=== PATIENT | male | born 1970 | race Caucasian/White ===

== ENCOUNTER 2025-09-07 21:14 | Observation (INO) ==
[2025-09-07 22:10] LABS: Anion Gap 13.0 (3-11); Blood Urea Nitrogen 16.0 mg/dl (6-23); Calcium 7.5 mg/dl (8.6-10.3); Carbon Dioxide 27.0 mmol/L (21-32); Chloride 93.0 mmol/L (98-107); Creatinine Clr Calc Pharmacy 91.0 ml/min; Glucose 115.0 mg/dl (70-99(Fasting)); Magnesium 1.2 mg/dl (1.7-2.4); Potassium 2.9 mmol/L (3.5-5.1); Sodium 133.0 mmol/L (136-145)
--- NOTE | 2025-09-07 22:39 | Emergency Department Note ---
Impression & Plan Alcoholic intoxication, Hypomagnesemia, Acute hypokalemia, Acute hyponatremia, Falls ED Provider Note NAME: CAROL KUMAR AGE: 54 SEX: M : 1970 ARRIVES VIA: Ambulance INFORMANT: Patient, EMS ED PROVIDER(S): Naun Siegel DO CHIEF COMPLAINT: intoxication HPI: This is a 54-year-old male with the PMHx of alcohol use disorder presenting to [facility] for further evaluation of alcohol intoxication. Patient is accompanied by EMS who provide additional history. EMS reports the patient arrived to [facility] of his rehabilitation facility today and found to be intoxicated leading to transfer to the hospital. The patient reports drinking 2 pints of [place] today. He states that he relapsed on alcohol approximately 4 weeks ago. He states that he has fallen approximately 4-5 times today and struck his head. He currently has no pain. Patient states that he has been drinking because he was worried that he was going into delirium tremens. Patient states that he has required detoxification multiple times in the past as well as hospitalizations. He reports history of complicated withdrawal. Patient denies any anticoagulation. They deny fever or chills. No cough or congestion. Denies chest pain or palpitations. No shortness of breath. They deny abdominal pain, nausea and vomiting. No urinary complaints. No recent changes in bowel movements. Patient denies recent changes in medications or OTC supplements. Patient offers no other complaints, today. ADDITIONAL HISTORY OBTAINED: Per HPI Chronic Medical/Social Conditions Affecting Care: Per HPI PAST MEDICAL HISTORY: See Below PAST SURGICAL HISTORY: See Below FAMILY HISTORY: See Below SOCIAL HISTORY: See Below HOME MEDICATIONS: See Below ALLERGIES: See Below VITALS: See Below PHYSICAL EXAMINATION: GENERAL: Sitting up in bed, alert, well appearing, well nourished, no distress, non-toxic HEAD: atraumatic. No contusion, abrasion or lacerations. No Baumann sign present. No raccoon's eyes. EYE EXAM: normal conjunctiva. PERRL and EOM's grossly intact. OROPHARYNX: no exudate, no erythema, lips, buccal mucosa, and tongue normal and mucous membranes are moist NECK: supple, no nuchal rigidity, no adenopathy, non-tender LUNGS: Clear to auscultation. Normal chest wall mechanics HEART: no murmurs, regular rate, regular rhythm ABDOMEN: abdomen soft, non-tender, no masses, no rebound or guarding. BACK: Back is symmetrical on inspection and there is no deformity, no midline tenderness, no CVA tenderness. SKIN: no rashes and no bruising UPPER EXTREMITIES: upper extremities are grossly normal. LOWER EXTREMITIES: No pitting edema. NEURO EXAM: Normal sensorium, GCS 15, normal speech, no gross weakness of arms, no gross weakness of legs. Intoxicated. MEDICAL DECISION MAKING: Differential diagnoses includes but not limited to acute alcohol intoxication, electrolyte derangements, dehydration, CVA, intracranial hemorrhage, TBI, skull fracture, C-spine fracture, rib fracture, pelvic fracture, soft tissue injury, alcohol withdrawal, polysubstance use disorder In summary, this is a 54 year old male who presented with acute alcohol intoxication. Differential as above. Nursing notes and pertinent past medical records reviewed. Vital signs reviewed and the patient is afebrile and hemodynamically stable. History and presentation revealed alcohol use disorder. [place]iting [place] for alcohol rehabilitation services at [facility]. Patient had multiple falls today but no obvious evidence of trauma on physical examination. Has a complicated history with multiple inpatient admissions for alcohol withdrawal per the patient. Plan for evaluation for traumatic injuries while checking basic lab work as well as a medical ethanol. Diagnostics interpreted by me include cardiac monitoring as listed below: -Cardiac Monitoring: An order was placed for continuous cardiac monitoring. The monitor shows a rate of 70-80s with regular rhythm. Labs were independently interpreted by me as acute hyponatremia, hypokalemia and hypomagnesemia. Minimal anion gap likely secondary to elevated ethanol at 293. Crystalloid bolus ordered as well as p.o. and IV replenishment of electrolytes. CXR independently interpreted by me reveals no evidence of focal consolidation to suggest pna. No large pneumothorax or pleural effusion. Pelvic x-ray independently inter by me negative for acute fracture or dislocation. CTH independently interpreted by me reveals no evidence of ICH. No significant hydrocephalus. No major skull fractures. CTH does not demonstrate findings to suggest an etiology of the patient's symptoms or presentation, today. The patient's cervical collar was removed today. The patient's imaging was reviewed and the CT C-Spine was negative for acute injury. Patient refused to wear his c-collar throughout the emergency department stay and had removed this prior to my evaluation. Patient has no tenderness and midline without focal deficits. Do feel this is reasonable to remove as he is noncompliant and currently intoxicated. We do have radiographic evidence that the patient does not have a C-spine injury. I do have significant concerns with discharge for this patient. He has a history of complicated withdrawal and is currently intoxicated. He has multiple electrolyte derangements. I do feel to be reasonable for admission for close monitoring and further IV fluid resuscitation/electrolyte replenishment as an inpatient. Ultimately, the decision was made to admit the patient for Acute alcohol intoxication of multiple electrolyte derangements were high risk for withdrawal. I discussed the case with the hospitalist service via telephone/Tiger[employer] and they are agreeable to admit the patient to their services. Based on the above, including the patient's age, coexisting illnesses, labs, imaging, and exam findings the decision to treat as an inpatient. I discussed the patient with the hospitalist team who recommended admission to their services. They received the medications, treatments, interventions indicated above and their condition remained guarded. I discussed my findings with the patient and their family and they understand and agree with the treatment plan. All patient / family questions were answered to their satisfaction. Consults/Care Managements Discussions: Per [facility] ER treatment provided: See above Procedures: none Critical Care: None The chart was completed utilizing [employer] Speech voice recognition software. Grammatical errors, random word insertions, pronoun errors, and incomplete sentences are an occasional consequence of this system due to software limitations, ambient noise, and hardware issues. Any formal questions or concerns about the content, text, or information contained within the body of this dictation should be directly addressed to the physician for clarification. Past Med/Surg History Problem List (Updated 09/08/25 @ 04:12 by Naun Siegel DO) Falls (Acute) Acute hyponatremia (Acute) Acute hypokalemia (Acute) Hypomagnesemia (Acute) Alcoholic intoxication (Acute) Social History Smoking Status: Current every day smoker Tobacco Type: Cigarettes Feels Safe at Home: Yes Allergies Allergies Allergy/AdvReac Type Severity Reaction Status Date / Time No Known Allergies Allergy Unverified 09/08/25 03:53 Home Meds Home Medications Medication Instructions Recorded Confirmed albuterol sulfate 90 mcg/actuation 2 inh inhalation Q6H PRN Shortness 09/08/25 09/08/25 aerosol inhaler Of Breath Or Wheezing aspirin 81 mg tablet,delayed 81 mg PO DAILY 09/08/25 09/08/25 release atorvastatin 10 mg tablet 10 mg PO DAILY 09/08/25 09/08/25 clonidine HCl 0.1 mg tablet 0.1 mg PO TID 09/08/25 09/08/25 cyanocobalamin (vitamin B-12) 1,000 mcg PO DAILY 09/08/25 09/08/25 1,000 mcg tablet cyclobenzaprine 10 mg tablet 10 mg PO TID PRN muscle spasms 09/08/25 09/08/25 ergocalciferol (vitamin D2) 1,250 1,250 mcg PO WK 09/08/25 09/08/25 mcg (50,000 unit) capsule esomeprazole magnesium 20 mg 20 mg PO DAILY 09/08/25 09/08/25 capsule,delayed release gabapentin 600 mg tablet 600 mg PO TID PRN Pain 09/08/25 09/08/25 hydrochlorothiazide 12.5 mg tablet 12.5 mg PO DAILY 09/08/25 09/08/25 hydroxychloroquine 200 mg tablet 400 mg PO DAILY 09/08/25 09/08/25 hydroxyzine HCl 25 mg tablet 50 mg PO TID PRN Anxiety 09/08/25 09/08/25 losartan 50 mg tablet 50 mg PO DAILY 09/08/25 09/08/25 magnesium oxide 400 mg (241.3 mg 400 mg PO DAILY 09/08/25 09/08/25 magnesium) tablet meloxicam 7.5 mg tablet 7.5 mg PO DAILY PRN Pain, Moderate 09/08/25 09/08/25 sertraline 100 mg tablet 200 mg PO DAILY 09/08/25 09/08/25 tiotropium bromide 18 mcg capsule 18 cap inhalation DAILY 09/08/25 09/08/25 with inhalation device vitamin B complex 1 cap PO DAILY 09/08/25 09/08/25 Results & Data (ED) Vital Signs Vital Signs - 24 hr 09/07/25 21:20 09/07/25 21:25 09/07/25 21:32 Temperature 36.8 C Temperature Source Oral Pulse Rate 78 80 75 Pulse Rate [Finger] Pulse Rate from SpO2 Sensor Pulse Rhythm Regular Pulse Rhythm [Finger] Pulse Strength [Finger] Respiratory Rate 16 16 Respiratory Effort / Characteristics Non-Labored Spontaneous Respiratory Depth Normal Respiratory Pattern Regular Blood Pressure 112/72 Blood Pressure [Right Arm] Blood Pressure Mean 85 Blood Pressure Mean [Right Arm] Blood Pressure Position [Right Arm] Pulse Oximetry 95 93 Oxygen Delivery Method Room Air Room Air Sepsis Recent Fever Within 48 Hours No Sepsis New/Unexplained Change in Mental Status No Sepsis Action Taken by Nursing No Action Required 09/07/25 22:36 09/07/25 23:00 09/07/25 23:00 Temperature 36.4 C L Temperature Source Oral Pulse Rate Pulse Rate [Finger] 79 78 Pulse Rate from SpO2 Sensor Pulse Rhythm Pulse Rhythm [Finger] Regular Pulse Strength [Finger] Normal Respiratory Rate 20 20 Respiratory Effort / Characteristics Non-Labored Spontaneous Respiratory Depth Normal Normal Respiratory Pattern Regular Blood Pressure 106/77 Blood Pressure [Right Arm] 129/71 106/77 Blood Pressure Mean 87 Blood Pressure Mean [Right Arm] 90 86 Blood Pressure Position [Right Arm] Lying Pulse Oximetry 93 91 Oxygen Delivery Method Room Air Room Air Sepsis Recent Fever Within 48 Hours Sepsis New/Unexplained Change in Mental Status Sepsis Action Taken by Nursing 09/07/25 23:00 09/07/25 23:06 09/07/25 23:09 Temperature Temperature Source Pulse Rate 78 Pulse Rate [Finger] 81 Pulse Rate from SpO2 Sensor Pulse Rhythm Pulse Rhythm [Finger] Regular Pulse Strength [Finger] Normal Respiratory Rate 12 17 Respiratory Effort / Characteristics Non-Labored Spontaneous Respiratory Depth Normal Respiratory Pattern Regular Blood Pressure 106/77 Blood Pressure [Right Arm] 129/71 Blood Pressure Mean 87 Blood Pressure Mean [Right Arm] 90 Blood Pressure Position [Right Arm] Lying Pulse Oximetry 93 98 Oxygen Delivery Method Room Air Sepsis Recent Fever Within 48 Hours Sepsis New/Unexplained Change in Mental Status Sepsis Action Taken by Nursing 09/07/25 23:12 09/07/25 23:27 09/07/25 23:30 Temperature Temperature Source Pulse Rate 78 80 78 Pulse Rate [Finger] Pulse Rate from SpO2 Sensor 76 79 Pulse Rhythm Pulse Rhythm [Finger] Pulse Strength [Finger] Respiratory Rate 14 13 Respiratory Effort / Characteristics Respiratory Depth Respiratory Pattern Blood Pressure Blood Pressure [Right Arm] Blood Pressure Mean Blood Pressure Mean [Right Arm] Blood Pressure Position [Right Arm] Pulse Oximetry 90 91 Oxygen Delivery Method Sepsis Recent Fever Within 48 Hours Sepsis New/Unexplained Change in Mental Status Sepsis Action Taken by Nursing 09/08/25 00:00 09/08/25 00:01 09/08/25 01:00 Temperature Temperature Source Pulse Rate Pulse Rate [Finger] 77 73 Pulse Rate from SpO2 Sensor Pulse Rhythm Pulse Rhythm [Finger] Regular Regular Pulse Strength [Finger] Normal Normal Respiratory Rate 14 15 Respiratory Effort / Characteristics Non-Labored Spontaneous Non-Labored Spontaneous Respiratory Depth Normal Normal Respiratory Pattern Regular Regular Blood Pressure 117/72 Blood Pressure [Right Arm] 117/73 114/74 Blood Pressure Mean 89 Blood Pressure Mean [Right Arm] 87 87 Blood Pressure Position [Right Arm] Lying Lying Pulse Oximetry 93 96 Oxygen Delivery Method Room Air Room Air Sepsis Recent Fever Within 48 Hours Sepsis New/Unexplained Change in Mental Status Sepsis Action Taken by Nursing 09/08/25 01:24 09/08/25 01:27 09/08/25 01:33 Temperature Temperature Source Pulse Rate 73 79 Pulse Rate [Finger] Pulse Rate from SpO2 Sensor Pulse Rhythm Pulse Rhythm [Finger] Pulse Strength [Finger] Respiratory Rate 13 Respiratory Effort / Characteristics Respiratory Depth Respiratory Pattern Blood Pressure 117/73 Blood Pressure [Right Arm] Blood Pressure Mean 79 Blood Pressure Mean [Right Arm] Blood Pressure Position [Right Arm] Pulse Oximetry Oxygen Delivery Method Sepsis Recent Fever Within 48 Hours Sepsis New/Unexplained Change in Mental Status Sepsis Action Taken by Nursing 09/08/25 01:51 09/08/25 02:00 09/08/25 02:01 Temperature Temperature Source Pulse Rate 71 Pulse Rate [Finger] 72 Pulse Rate from SpO2 Sensor 71 Pulse Rhythm Pulse Rhythm [Finger] Regular Pulse Strength [Finger] Normal Respiratory Rate 17 14 Respiratory Effort / Characteristics Non-Labored Spontaneous Respiratory Depth Normal Respiratory Pattern Regular Blood Pressure 141/83 H Blood Pressure [Right Arm] 140/83 Blood Pressure Mean 111 Blood Pressure Mean [Right Arm] 102 Blood Pressure Position [Right Arm] Lying Pulse Oximetry 92 91 Oxygen Delivery Method Room Air Sepsis Recent Fever Within 48 Hours Sepsis New/Unexplained Change in Mental Status Sepsis Action Taken by Nursing 09/08/25 02:18 09/08/25 02:24 09/08/25 02:36 Temperature Temperature Source Pulse Rate 83 Pulse Rate [Finger] Pulse Rate from SpO2 Sensor 86 78 Pulse Rhythm Pulse Rhythm [Finger] Pulse Strength [Finger] Respiratory Rate 21 Respiratory Effort / Characteristics Respiratory Depth Respiratory Pattern Blood Pressure Blood Pressure [Right Arm] Blood Pressure Mean Blood Pressure Mean [Right Arm] Blood Pressure Position [Right Arm] Pulse Oximetry 96 92 Oxygen Delivery Method Sepsis Recent Fever Within 48 Hours Sepsis New/Unexplained Change in Mental Status Sepsis Action Taken by Nursing 09/08/25 02:42 09/08/25 02:54 09/08/25 03:00 Temperature Temperature Source Pulse Rate Pulse Rate [Finger] 72 Pulse Rate from SpO2 Sensor 74 73 Pulse Rhythm Pulse Rhythm [Finger] Regular Pulse Strength [Finger] Normal Respiratory Rate 17 Respiratory Effort / Characteristics Non-Labored Spontaneous Respiratory Depth Normal Respiratory Pattern Regular Blood Pressure Blood Pressure [Right Arm] 108/75 Blood Pressure Mean Blood Pressure Mean [Right Arm] 86 Blood Pressure Position [Right Arm] Lying Pulse Oximetry 94 93 96 Oxygen Delivery Method Room Air Sepsis Recent Fever Within 48 Hours Sepsis New/Unexplained Change in Mental Status Sepsis Action Taken by Nursing 09/08/25 03:12 09/08/25 03:12 09/08/25 03:12 Temperature Temperature Source Pulse Rate 72 Pulse Rate [Finger] Pulse Rate from SpO2 Sensor 72 Pulse Rhythm Pulse Rhythm [Finger] Pulse Strength [Finger] Respiratory Rate Respiratory Effort / Characteristics Respiratory Depth Respiratory Pattern Blood Pressure 108/75 108/75 Blood Pressure [Right Arm] Blood Pressure Mean 81 81 Blood Pressure Mean [Right Arm] Blood Pressure Position [Right Arm] Pulse Oximetry 92 Oxygen Delivery Method Sepsis Recent Fever Within 48 Hours Sepsis New/Unexplained Change in Mental Status Sepsis Action Taken by Nursing 09/08/25 03:24 09/08/25 03:30 Temperature Temperature Source Pulse Rate 72 72 Pulse Rate [Finger] Pulse Rate from SpO2 Sensor 72 73 Pulse Rhythm Pulse Rhythm [Finger] Pulse Strength [Finger] Respiratory Rate 14 17 Respiratory Effort / Characteristics Respiratory Depth Respiratory Pattern Blood Pressure Blood Pressure [Right Arm] Blood Pressure Mean Blood Pressure Mean [Right Arm] Blood Pressure Position [Right Arm] Pulse Oximetry 90 91 Oxygen Delivery Method Sepsis Recent Fever Within 48 Hours Sepsis New/Unexplained Change in Mental Status Sepsis Action Taken by Nursing Laboratory Data 09/07/25 21:32 09/07/25 21:32 Lab Results 09/07/25 Range/Units 21:32 WBC 10.06 (4.8-10.8) K/ul RBC 3.60 L (4.70-6.10) M/uL Hgb 11.5 L (14.0-18.0) g/dl Hct 34.2 L (42.0-52.0) % MCV 95.0 (80.0-100.0) fL MCH 35.4 H (25.0-34.0) pg MCHC 37.1 H (32.0-36.0) g/dL RDW Std Deviation 48.2 H (36.4-46.3) fL RDW Coeff of Javi 13.7 (11.5-14.5) % Plt Count 220 (130-400) K/uL MPV 9.7 (9.4-12.4) fL Immature Gran % (Auto) 0.3 % Neut % (Auto) 52.6 % Lymph % (Auto) 35.6 % Trego % (Auto) 9.5 % Eos % (Auto) 1.4 % Baso % (Auto) 0.6 % Neut # (Auto) 5.29 (1.40-6.50) K/uL Lymph # (Auto) 3.58 H (1.20-3.40) K/uL Trego # (Auto) 0.96 H (0.11-0.59) K/uL Eos # (Auto) 0.14 (0.00-0.50) K/uL Baso # (Auto) 0.06 (0.00-0.20) K/uL Immature Gran # (Auto) 0.03 (0.01-0.20) K/uL Sodium 133 L (136-145) mmol/L Potassium 2.9 L (3.5-5.1) mmol/L Chloride 93 L (98-107) mmol/L Carbon Dioxide 27 (21-32) mmol/L Anion Gap 13 H (3-11) BUN 16 (6-23) mg/dl Creatinine 1.19 (0.6-1.4) mg/dl Est Cr Clr Drug Dosing 91.0 ml/min eGFR 72.59 BUN/Creatinine Ratio 13.4 (10-20) Glucose 115 H (70-99(Fasting)) mg/dl Calcium 7.5 L (8.6-10.3) mg/dl Phosphorus 4.1 (2.5-4.9) mg/dl Magnesium 1.2 L (1.7-2.4) mg/dl Ethyl Alcohol mg/dL 293.4 H (<10.0) mg/dl Administered Medications Magnesium Sulfate/Dextrose (Magnesium Sulfate / D5w) 1 gm in 100 mls @ 50 mls/hr IV ONE ONE Stop: 09/08/25 04:28 Last Admin: 09/08/25 03:03 Dose: 50 mls/hr Documented By: [facility] Discontinued Medications Parenteral Electrolytes (Plasma-Lyte A Ph 7.4) 1,000 mls @ 999 mls/hr IV .Q1H1M ONE Stop: 09/07/25 23:11 Last Admin: 09/08/25 00:13 Dose: 999 mls/hr Documented By: [facility] Potassium Chloride (K Kunal / Wtr) 10 meq in 100 mls @ 100 mls/hr IV Q1H VINAYAK Stop: 09/08/25 01:14 Last Admin: 09/08/25 02:43 Dose: 100 mls/hr Documented By: [facility] Infusion: 09/08/25 02:31 Dose: Infused Documented By: [facility] Admin: 09/08/25 01:31 Dose: 100 mls/hr Documented By: [facility] Infusion: 09/08/25 01:13 Dose: Infused Documented By: [facility] Admin: 09/08/25 00:13 Dose: 100 mls/hr Documented By: [facility] Magnesium Sulfate/Dextrose (Magnesium Sulfate / D5w) 1 gm in 100 mls @ 100 mls/hr IV Q1H [facility] Stop: 09/08/25 00:10 Last Admin: 09/08/25 01:30 Dose: 100 mls/hr Documented By: [facility] Infusion: 09/08/25 01:13 Dose: Infused Documented By: [facility] Admin: 09/08/25 00:13 Dose: 100 mls/hr Documented By: [facility] Thiamine HCl 100 mg/ Syringe 10 mls @ 2 mls/min IV NOW STA Stop: 09/08/25 03:50 Last Admin: 09/08/25 04:06 Dose: 2 mls/min Documented By: [facility] Potassium Chloride (Potassium Chloride Crtab 20 Meq Tabcr) 40 meq PO NOW STA Stop: 09/07/25 22:12 Last Admin: 09/08/25 00:11 Dose: 40 meq Documented By: [facility] Potassium Chloride (Potassium Chloride 20 Meq/15 Ml Udc) 40 meq PO NOW STA Stop: 09/08/25 02:30 Last Admin: 09/08/25 03:03 Dose: 40 meq Documented By: [facility] Imaging Data Radiologist's Impression: Cervical Spine CT 09/07/25 21:21 Exam(s): CT C SPINE EXAM: CT Cervical Spine Without Intravenous Contrast CLINICAL HISTORY: fall. TECHNIQUE: Axial computed tomography images of the cervical spine without intravenous contrast. CTDI is 35.65 mGy and DLP is 1226.72 mGy-cm. Automated exposure control was utilized for the study. A dose lowering technique was utilized adhering to the principles of ALARA. COMPARISON: No relevant prior studies available. FINDINGS: Vertebrae: The vertebral bodies are intact without acute osseous traumatic injury. No anterolisthesis or retrolisthesis is identified. The facet joints are well aligned without subluxation or dislocation. The pedicles, transverse processes and spinous processes are intact. Bilateral chronic facet hypertrophic arthropathy incidentally noted. Discs/spinal canal/neural foramina: Incidental chronic appearing multilevel disc spondylosis noted with narrowing and marginal hypertrophic changes. No significant acute central canal stenosis identified. Soft tissues: Unremarkable. IMPRESSION: No acute osseous traumatic injury or significant abnormal alignment involving the cervical spine. Incidental chronic multilevel degenerative changes noted. Electronically signed by: Maxx Ojeda MD 09/07/25 23:34 PM Chest X-Ray 09/07/25 21:21 Exam(s): XR CXR 2 VIEWS EXAM: XR Chest, 2 Views CLINICAL HISTORY: falls. TECHNIQUE: Frontal and lateral views of the chest. COMPARISON: No relevant prior studies available. FINDINGS: Lungs: No focal consolidation or evidence for contusive injury. The pulmonary vasculature demonstrates no significant radiographic abnormality. Pleural space: Unremarkable. No pneumothorax. No large pleural effusion. Heart: Unremarkable. No cardiomegaly. Mediastinum: The mediastinal contours are unremarkable, accounting for lordotic technique. No evidence for mediastinal widening. The trachea is midline. Bones/joints: No acute osseous abnormality. IMPRESSION: No radiographic evidence for significant acute traumatic injury to the chest/thorax. Electronically signed by: Maxx Ojeda MD 09/07/25 23:[address] 09/07/25 21:21 Exam(s): CT HEAD Without Contrast EXAM: CT Head Without Intravenous Contrast CLINICAL HISTORY: falls. TECHNIQUE: Axial computed tomography images of the head/brain without intravenous contrast. CTDI is 35.65 mGy and DLP is 1226.72 mGy-cm. Automated exposure control was utilized for the study. A dose lowering technique was utilized adhering to the principles of ALARA. COMPARISON: No relevant prior studies available. FINDINGS: Limitations: There is motion artifact, which degrades image quality on multiple image slices. Brain: Unremarkable. No hemorrhage. No significant white matter disease. No edema. Ventricles: Unremarkable. No ventriculomegaly. Bones/joints: Unremarkable. No acute fracture. Soft tissues: No significant overlying soft tissue traumatic injury identified. No radiopaque foreign body or subcutaneous emphysema. Sinuses: Mucosal thickening involving several ethmoid air cells. The left maxillary sinus demonstrates mucosal thickening with mucoperiosteal sclerosis. No air-fluid levels. Mastoid air cells: Unremarkable as visualized. No mastoid effusion. IMPRESSION: Accounting for mild motion artifact, no acute intracranial process identified. Electronically signed by: Maxx Ojeda MD 09/07/25 23:31 PM Pelvis X-Ray 09/07/25 21:21 Exam(s): XR PELVIS, 1-2 views EXAM: XR Pelvis, 1 or 2 Views CLINICAL HISTORY: falls. TECHNIQUE: Frontal view of the pelvis. COMPARISON: No relevant prior studies available. FINDINGS: Bones/joints: The pelvic bones are intact. Asymmetric moderate degenerative changes of the left hip. The femoral heads overlie the acetabula in the frontal projection. No acute fracture. No dislocation. Soft tissues: Unremarkable. Vasculature: Incidental arterial calcification involving the proximal lower extremities, [id number]. IMPRESSION: No acute findings involving the osseous pelvis. Electronically signed by: Maxx Ojeda MD 09/07/25 23:37 PM Discharge Plan Visit Data Chief Complaint: Alcohol Intoxication Stated Complaint: ALCOHOL OVERDOSE ED Provider: Naun Siegel Discharge Problem: Alcoholic intoxication, Hypomagnesemia, Acute hypokalemia, Acute hyponatremia, Falls Patient Disposition: Admitted As Inpatient Condition: Fair Forms Stand Alone Forms: [facility] Prescriptions Prescriptions: No Action losartan 50 mg tablet 50 mg PO DAILY cyclobenzaprine 10 mg tablet 10 mg PO TID PRN (Reason: muscle spasms) clonidine HCl 0.1 mg tablet 0.1 mg PO TID gabapentin 600 mg tablet 600 mg PO TID PRN (Reason: Pain) atorvastatin 10 mg tablet 10 mg PO DAILY sertraline 100 mg tablet 200 mg PO DAILY cyanocobalamin (vitamin B-12) 1,000 mcg Tablet 1,000 mcg PO DAILY aspirin 81 mg Tablet,Delayed Release (Dr/Ec) 81 mg PO DAILY meloxicam 7.5 mg tablet 7.5 mg PO DAILY PRN (Reason: Pain, Moderate) magnesium oxide 400 mg (241.3 mg magnesium) tablet 400 mg PO DAILY hydroxyzine HCl 25 mg tablet 50 mg PO TID PRN (Reason: Anxiety) ergocalciferol (vitamin D2) 1,250 mcg (50,000 unit) capsule 1,250 mcg PO WK albuterol sulfate 90 mcg/actuation HFA aerosol inhaler 2 inh INHALATION Q6H PRN (Reason: Shortness Of Breath Or Wheezing) vitamin B complex Capsule 1 cap PO DAILY esomeprazole magnesium 20 mg capsule,delayed release(DR/EC) 20 mg PO DAILY tiotropium bromide 18 mcg capsule, w/inhalation device 18 cap INHALATION DAILY hydrochlorothiazide 12.5 mg tablet 12.5 mg PO DAILY hydroxychloroquine 200 mg tablet 400 mg PO DAILY Referrals Referrals: PCP,NO [Primary Care Provider] -
[2025-09-07 23:17] LABS: Hematocrit (blood only) 34.2 % (42.0-52.0); Hemoglobin 11.5 g/dl (14.0-18.0); Mean Corpuscular Hemoglobin 35.4 pg (25.0-34.0); Mean Corpuscular Volume 95.0 fL (80.0-100.0); Platelet Count 220 K/uL (130-400); RDW Standard Deviation 48.2 fL (36.4-46.3); Red Blood Count 3.60 M/uL (4.70-6.10); White Blood Count 10.06 K/ul (4.8-10.8)
[2025-09-07 23:18] LABS: Immature Granulocytes # (auto) 0.03 K/uL (0.01-0.20); Immature Granulocytes % (auto) 0.3 %
--- NOTE | 2025-09-07 23:32 | CT Scan Report ---
Exam(s): CT HEAD Without Contrast EXAM: CT Head Without Intravenous Contrast CLINICAL HISTORY: falls. TECHNIQUE: Axial computed tomography images of the head/brain without intravenous contrast. CTDI is 35.65 mGy and DLP is 1226.72 mGy-cm. Automated exposure control was utilized for the study. A dose lowering technique was utilized adhering to the principles of ALARA. COMPARISON: No relevant prior studies available. FINDINGS: Limitations: There is motion artifact, which degrades image quality on multiple image slices. Brain: Unremarkable. No hemorrhage. No significant white matter disease. No edema. Ventricles: Unremarkable. No ventriculomegaly. Bones/joints: Unremarkable. No acute fracture. Soft tissues: No significant overlying soft tissue traumatic injury identified. No radiopaque foreign body or subcutaneous emphysema. Sinuses: Mucosal thickening involving several ethmoid air cells. The left maxillary sinus demonstrates mucosal thickening with mucoperiosteal sclerosis. No air-fluid levels. Mastoid air cells: Unremarkable as visualized. No mastoid effusion. IMPRESSION: Accounting for mild motion artifact, no acute intracranial process identified. Electronically signed by: Maxx Ojeda MD 09/07/25 23:31 PM
--- NOTE | 2025-09-07 23:35 | CT Scan Report ---
Exam(s): CT C SPINE EXAM: CT Cervical Spine Without Intravenous Contrast CLINICAL HISTORY: fall. TECHNIQUE: Axial computed tomography images of the cervical spine without intravenous contrast. CTDI is 35.65 mGy and DLP is 1226.72 mGy-cm. Automated exposure control was utilized for the study. A dose lowering technique was utilized adhering to the principles of ALARA. COMPARISON: No relevant prior studies available. FINDINGS: Vertebrae: The vertebral bodies are intact without acute osseous traumatic injury. No anterolisthesis or retrolisthesis is identified. The facet joints are well aligned without subluxation or dislocation. The pedicles, transverse processes and spinous processes are intact. Bilateral chronic facet hypertrophic arthropathy incidentally noted. Discs/spinal canal/neural foramina: Incidental chronic appearing multilevel disc spondylosis noted with narrowing and marginal hypertrophic changes. No significant acute central canal stenosis identified. Soft tissues: Unremarkable. IMPRESSION: No acute osseous traumatic injury or significant abnormal alignment involving the cervical spine. Incidental chronic multilevel degenerative changes noted. Electronically signed by: Maxx Ojeda MD 09/07/25 23:34 PM
--- NOTE | 2025-09-07 23:38 | XRay Report ---
Exam(s): XR PELVIS, 1-2 views EXAM: XR Pelvis, 1 or 2 Views CLINICAL HISTORY: falls. TECHNIQUE: Frontal view of the pelvis. COMPARISON: No relevant prior studies available. FINDINGS: Bones/joints: The pelvic bones are intact. Asymmetric moderate degenerative changes of the left hip. The femoral heads overlie the acetabula in the frontal projection. No acute fracture. No dislocation. Soft tissues: Unremarkable. Vasculature: Incidental arterial calcification involving the proximal lower extremities, [id number]. IMPRESSION: No acute findings involving the osseous pelvis. Electronically signed by: Maxx Ojeda MD 09/07/25 23:37 PM
--- NOTE | 2025-09-07 23:39 | XRay Report ---
Exam(s): XR CXR 2 VIEWS EXAM: XR Chest, 2 Views CLINICAL HISTORY: falls. TECHNIQUE: Frontal and lateral views of the chest. COMPARISON: No relevant prior studies available. FINDINGS: Lungs: No focal consolidation or evidence for contusive injury. The pulmonary vasculature demonstrates no significant radiographic abnormality. Pleural space: Unremarkable. No pneumothorax. No large pleural effusion. Heart: Unremarkable. No cardiomegaly. Mediastinum: The mediastinal contours are unremarkable, accounting for lordotic technique. No evidence for mediastinal widening. The trachea is midline. Bones/joints: No acute osseous abnormality. IMPRESSION: No radiographic evidence for significant acute traumatic injury to the chest/thorax. Electronically signed by: Maxx Ojeda MD 09/07/25 23:38 PM
[2025-09-08] MEDS: POTASSIUM CHLORIDE CRTAB 20 MEQ TABCR PO STA (00:11)
[2025-09-08] MEDS: PLASMA-LYTE A 1,000 ML IV ONE (00:13)
[2025-09-08] MEDS: MAGNESIUM SULFATE / D5W 1 GM/100 ML BAG IV SCH (00:13)
[2025-09-08] MEDS: POTASSIUM CHLORIDE / WTR 10 MEQ/100 ML PLCT IV SCH (00:13)
[2025-09-08] MEDS: MAGNESIUM SULFATE / D5W 1 GM/100 ML BAG IV ONE (03:03)
[2025-09-08] MEDS: POTASSIUM CHLORIDE 20 MEQ/15 ML UDC PO STA (03:03)
[2025-09-08] MEDS: THIAMINE HCL 100 MG in SYRINGE 9 ML IV STA (04:06)
--- NOTE | 2025-09-08 04:41 | History & Physical Report ---
Date of Service September 08, 2025 Assessment & Plan (1) Alcoholic intoxication: Plan: 54-year-old male with past medical history significant for hypertension, hyperlipidemia, peripheral vascular disease, GERD, COPD, rheumatoid arthritis, depression and anxiety and ongoing alcoholism and tobacco abuse presents with alcohol intoxication. Patient went to [facility] today and found to be intoxicated with alcohol and sent here. Patient states he was in alcohol rehab last year. And states he started drinking again 4 weeks ago when he had his tooth pulled out for pain control. Patient states last 4 days he did not eat anything and was just drinking. Since last 4 weeks states is drinking 3 pints of hard liquor daily. Denies any headache. Vision is okay. No sore throat. Has cough from his smoking. Afebrile. Denies any chest pain or shortness of breath. No nausea or abdominal pain. Normal bowel and bladder movements. States he is feeling dizzy when he stands up. Hemodynamics are okay. He states he had a severe alcohol withdrawal in the past.Patient is from [facility]. Alcohol intoxication Alcohol level 293 [facility] to [facility] but was sent here because of intoxication Patient has alcohol withdrawal in the past Will place him on Librium protocol with Ativan as needed IV thiamine and folic acid and multivitamins will follow lfts Close monitor for withdrawal History of rheumatoid arthritis On Plaquenil History of COPD Continue home inhalers History of peripheral vascular disease Status post stents to both legs as per patient On aspirin, Plavix and statin GERD On omeprazole will change to Protonix as patient on Plavix. Hyperlipidemia On statin Depression and anxiety Zoloft Hypertension On clonidine and losartan Will hold hydrochlorothiazide for electrolyte abnormalities Will monitor Hyponatremia Sodium 133 On fluids Will follow repeat labs Hypomagnesia and hypokalemia Magnesium 1.2 and potassium 2.9 Replacing Will follow repeat labs Hypocalcemia will replace follow vit d levels DVT prophylaxis Lovenox Disposition Telemetry Full code. History of Present Illness Chief Complaint: Alcohol intoxication Primary Care Provider: NO PCP 54-year-old male with past medical history significant for hypertension, hyperlipidemia, peripheral vascular disease, GERD, COPD, rheumatoid arthritis, depression and anxiety and ongoing alcoholism and tobacco abuse presents with alcohol intoxication. Patient went to [facility] today and found to be intoxicated with alcohol and sent here. Patient states he was in alcohol rehab last year. And states he started drinking again 4 weeks ago when he had his tooth pulled out for pain control. Patient states last 4 days he did not eat anything and was just drinking. Since last 4 weeks states is drinking 3 pints of hard liquor daily. Denies any headache. Vision is okay. No sore throat. Has cough from his smoking. Afebrile. Denies any chest pain or shortness of breath. No nausea or abdominal pain. Normal bowel and bladder movements. States he is feeling dizzy when he stands up. Hemodynamics are okay. He states he had a severe alcohol withdrawal in the past.Patient is from [facility]. Past medical history. As mentioned above. Past surgical history. Tooth extraction. Stents in both legs as per patient. Social history. Smoking half pack daily. Taking 3 pints of liquor daily. Smokes marijuana once in a while Family history. Denies any significant family history. Allergies Allergy/AdvReac Type Severity Reaction Status Date / Time No Known Allergies Allergy Verified 09/08/25 07:36 Home Medications Medication Instructions Recorded Confirmed Type albuterol sulfate 90 mcg/actuation 2 inh inhalation Q6H PRN Shortness 09/08/25 09/08/25 History aerosol inhaler Of Breath Or Wheezing aspirin 81 mg tablet,delayed 81 mg PO DAILY 09/08/25 09/08/25 History release atorvastatin 10 mg tablet 10 mg PO DAILY 09/08/25 09/08/25 History clonidine HCl 0.1 mg tablet 0.1 mg PO TID 09/08/25 09/08/25 History clopidogrel 75 mg tablet 75 mg PO DAILY 09/08/25 09/08/25 History cyanocobalamin (vitamin B-12) 1,000 mcg PO DAILY 09/08/25 09/08/25 History 1,000 mcg tablet cyclobenzaprine 10 mg tablet 10 mg PO TID PRN muscle spasms 09/08/25 09/08/25 History ergocalciferol (vitamin D2) 1,250 1,250 mcg PO WK 09/08/25 09/08/25 History mcg (50,000 unit) capsule esomeprazole magnesium 20 mg 20 mg PO DAILY 09/08/25 09/08/25 History capsule,delayed release gabapentin 600 mg tablet 600 mg PO TID PRN Pain 09/08/25 09/08/25 History hydrochlorothiazide 12.5 mg tablet 12.5 mg PO DAILY 09/08/25 09/08/25 History hydroxychloroquine 200 mg tablet 400 mg PO DAILY 09/08/25 09/08/25 History hydroxyzine HCl 25 mg tablet 50 mg PO TID PRN Anxiety 09/08/25 09/08/25 History losartan 50 mg tablet 50 mg PO DAILY 09/08/25 09/08/25 History magnesium oxide 400 mg (241.3 mg 400 mg PO DAILY 09/08/25 09/08/25 History magnesium) tablet meloxicam 7.5 mg tablet 7.5 mg PO DAILY PRN Pain, Moderate 09/08/25 09/08/25 History sertraline 100 mg tablet 200 mg PO DAILY 09/08/25 09/08/25 History tiotropium bromide 18 mcg capsule 18 cap inhalation DAILY 09/08/25 09/08/25 History with inhalation device vitamin B complex 1 cap PO DAILY 09/08/25 09/08/25 History Past Med/Surg History Problem List (Updated 09/08/25 @ 04:12 by Naun Siegel DO) Falls (Acute) Acute hyponatremia (Acute) Acute hypokalemia (Acute) Hypomagnesemia (Acute) Alcoholic intoxication (Acute) Social History Smoking Status: Current every day smoker Tobacco Type: Cigarettes Cigarettes Per Day: 10; Second Hand Exposure: No; Do You Dip or Chew Tobacco: No; Tobacco Cessation Education Requested by Patient: No Hx Alcohol Use: Yes Alcohol type: hard liquor Hx Substance Use: No Preferred Language: Ukrainian Communication Ability: Effective Hand Tier Required: No Beliefs That Will Affect Care: None Current Living Situation: Rehab Current Living Situation Comment: living at [facility] Other Information That Helps Us Care for You: No Feels Safe at Home: Yes Safety Concerns: Feels Safe At This Time Assistive Devices: None Review of Systems Review of Systems: All systems reviewed & are unremarkable except as noted in HPI & below Physical Exam Physical Exam: General- Not in distress Head- atraumatic Eyes- PERRL. ENT- oropharynx clear Neck- supple, no JVD. Lungs- clear to auscultation no wheezing or crackles. Heart- regular rhythm; no murmur, no gallop. Abdomen- normal bowel sounds, soft, nontender, no distension Extremities- no pretibial edema, no erythema seen Neuro- alert, oriented PERRL, no facial palsy; no dysarthria; moves extremities Results & Data Results & Data Vital Signs (Past 12 Hours) Vital Signs Temp Pulse Pulse Resp BP BP Pulse Ox 09/08/25 03:30 72 17 91 09/08/25 03:24 72 14 90 09/08/25 03:12 108/75 09/08/25 03:12 108/75 09/08/25 03:12 72 92 09/08/25 03:00 72 17 108/75 96 09/08/25 02:54 93 09/08/25 02:42 94 09/08/25 02:36 92 09/08/25 02:24 96 09/08/25 02:18 83 21 09/08/25 02:01 141/83 H 09/08/25 02:00 72 14 140/83 91 09/08/25 01:51 71 17 92 09/08/25 01:33 79 13 09/08/25 01:27 73 09/08/25 01:24 117/73 09/08/25 01:00 73 15 114/74 96 09/08/25 00:01 117/72 09/08/25 00:00 77 14 117/73 93 09/07/25 23:30 78 91 09/07/25 23:27 80 13 09/07/25 23:12 78 14 90 09/07/25 23:09 81 17 129/71 98 09/07/25 23:06 78 12 93 09/07/25 23:00 106/77 09/07/25 23:00 106/77 09/07/25 23:00 36.4 C L 78 20 106/77 91 09/07/25 22:36 79 20 129/71 93 09/07/25 21:32 75 09/07/25 21:25 36.8 C 80 16 112/72 93 09/07/25 21:20 78 16 95 O2 Del Method 09/08/25 03:30 09/08/25 03:24 09/08/25 03:12 09/08/25 03:12 09/08/25 03:12 09/08/25 03:00 Room Air 09/08/25 02:54 09/08/25 02:42 09/08/25 02:36 09/08/25 02:24 09/08/25 02:18 09/08/25 02:01 09/08/25 02:00 Room Air 09/08/25 01:51 09/08/25 01:33 09/08/25 01:27 09/08/25 01:24 09/08/25 01:00 Room Air 09/08/25 00:01 09/08/25 00:00 Room Air 09/07/25 23:30 09/07/25 23:27 09/07/25 23:12 09/07/25 23:09 Room Air 09/07/25 23:06 09/07/25 23:00 09/07/25 23:00 09/07/25 23:00 Room Air 09/07/25 22:36 Room Air 09/07/25 21:32 09/07/25 21:25 Room Air 09/07/25 21:20 Room Air Diagnostic Findings Laboratory Results WBC 10.06 K/ul (4.8-10.8) 09/07/25 21: RBC 3.60 M/uL (4.70-6.10) L 09/07/25 21:32 Hgb 11.5 g/dl (14.0-18.0) L 09/07/25 21: Hct 34.2 % (42.0-52.0) L 09/07/25 21: MCV 95.0 fL (80.0-100.0) 09/07/25 21: MCH 35.4 pg (25.0-34.0) H 09/07/25 21: MCHC 37.1 g/dL (32.0-36.0) H 09/07/25 21:32 RDW Std Deviation 48.2 fL (36.4-46.3) H 09/07/25 21:32 RDW Coeff of Javi 13.7 % (11.5-14.5) 09/07/25 21: Plt Count 220 K/uL (130-400) 09/07/25 21:32 MPV 9.7 fL (9.4-12.4) 09/07/25 21:32 Immature Gran % (Auto) 0.3 % 09/07/25 21: Neut % (Auto) 52.6 % 09/07/25: Lymph % (Auto) 35.6 % 09/07/25 21:32 [place] % (Auto) 9.5 % 09/07/25: Eos % (Auto) 1.4 % 09/07/25: Baso % (Auto) 0.6 % 09/07/25 21:32 Neut # (Auto) 5.29 K/uL (1.40-6.50) 09/07/25: Lymph # (Auto) 3.58 K/uL (1.20-3.40) H 09/07/25: [place] # (Auto) 0.96 K/uL (0.11-0.59) H 09/07/25: Eos # (Auto) 0.14 K/uL (0.00-0.50) 09/07/25: Baso # (Auto) 0.06 K/uL (0.00-0.20) 09/07/25: Immature Gran # (Auto) 0.03 K/uL (0.01-0.20) 09/07/25 21:32 Sodium 133 mmol/L (136-145) L 09/07/25 21: Potassium 2.9 mmol/L (3.5-5.1) L 09/07/25 21: Chloride 93 mmol/L (98-107) L 09/07/25: Carbon Dioxide 27 mmol/L (21-32) 09/07/25 21:32 Anion Gap 13 (3-11) H 09/07/25: BUN 16 mg/dl (6-23) 09/07/25: Creatinine 1.19 mg/dl (0.6-1.4) 09/07/25 21:32 Est Cr Clr Drug Dosing 91.0 ml/min 09/07/25 21:32 eGFR 72.59 09/07/25 21: BUN/Creatinine Ratio 13.4 (10-20) 09/07/25 21: Glucose 115 mg/dl (70-99(Fasting)) H 09/07/25 21: Calcium 7.5 mg/dl (8.6-10.3) L 09/07/25 21:32 Phosphorus 4.1 mg/dl (2.5-4.9) 09/07/25 21:32 Magnesium 1.2 mg/dl (1.7-2.4) L 09/07/25 21:32 Ethyl Alcohol mg/dL 293.4 mg/dl (<10.0) H 09/07/25 21:[address] 09/07/25 21:21 Exam(s): CT C SPINE EXAM: CT Cervical Spine Without Intravenous Contrast CLINICAL HISTORY: fall. TECHNIQUE: Axial computed tomography images of the cervical spine without intravenous contrast. CTDI is 35.65 mGy and DLP is 1226.72 mGy-cm. Automated exposure control was utilized for the study. A dose lowering technique was utilized adhering to the principles of ALARA. COMPARISON: No relevant prior studies available. FINDINGS: Vertebrae: The vertebral bodies are intact without acute osseous traumatic injury. No anterolisthesis or retrolisthesis is identified. The facet joints are well aligned without subluxation or dislocation. The pedicles, transverse processes and spinous processes are intact. Bilateral chronic facet hypertrophic arthropathy incidentally noted. Discs/spinal canal/neural foramina: Incidental chronic appearing multilevel disc spondylosis noted with narrowing and marginal hypertrophic changes. No significant acute central canal stenosis identified. Soft tissues: Unremarkable. IMPRESSION: No acute osseous traumatic injury or significant abnormal alignment involving the cervical spine. Incidental chronic multilevel degenerative changes noted. Electronically signed by: Maxx Ojeda MD 09/07/25 23:34 PM Chest X-Ray 09/07/25 21:21 Exam(s): XR CXR 2 VIEWS EXAM: XR Chest, 2 Views CLINICAL HISTORY: falls. TECHNIQUE: Frontal and lateral views of the chest. COMPARISON: No relevant prior studies available. FINDINGS: Lungs: No focal consolidation or evidence for contusive injury. The pulmonary vasculature demonstrates no significant radiographic abnormality. Pleural space: Unremarkable. No pneumothorax. No large pleural effusion. Heart: Unremarkable. No cardiomegaly. Mediastinum: The mediastinal contours are unremarkable, accounting for lordotic technique. No evidence for mediastinal widening. The trachea is midline. Bones/joints: No acute osseous abnormality. IMPRESSION: No radiographic evidence for significant acute traumatic injury to the chest/thorax. Electronically signed by: Maxx Ojeda MD 09/07/25 23:[address] 09/07/25 21:21 Exam(s): CT HEAD Without Contrast EXAM: CT Head Without Intravenous Contrast CLINICAL HISTORY: falls. TECHNIQUE: Axial computed tomography images of the head/brain without intravenous contrast. CTDI is 35.65 mGy and DLP is 1226.72 mGy-cm. Automated exposure control was utilized for the study. A dose lowering technique was utilized adhering to the principles of ALARA. COMPARISON: No relevant prior studies available. FINDINGS: Limitations: There is motion artifact, which degrades image quality on multiple image slices. Brain: Unremarkable. No hemorrhage. No significant white matter disease. No edema. Ventricles: Unremarkable. No ventriculomegaly. Bones/joints: Unremarkable. No acute fracture. Soft tissues: No significant overlying soft tissue traumatic injury identified. No radiopaque foreign body or subcutaneous emphysema. Sinuses: Mucosal thickening involving several ethmoid air cells. The left maxillary sinus demonstrates mucosal thickening with mucoperiosteal sclerosis. No air-fluid levels. Mastoid air cells: Unremarkable as visualized. No mastoid effusion. IMPRESSION: Accounting for mild motion artifact, no acute intracranial process identified. Electronically signed by: Maxx Ojeda MD 09/07/25 23:31 PM Pelvis X-Ray 09/07/25 21:21 Exam(s): XR PELVIS, 1-2 views EXAM: XR Pelvis, 1 or 2 Views CLINICAL HISTORY: falls. TECHNIQUE: Frontal view of the pelvis. COMPARISON: No relevant prior studies available. FINDINGS: Bones/joints: The pelvic bones are intact. Asymmetric moderate degenerative changes of the left hip. The femoral heads overlie the acetabula in the frontal projection. No acute fracture. No dislocation. Soft tissues: Unremarkable. Vasculature: Incidental arterial calcification involving the proximal lower extremities, [id number]. IMPRESSION: No acute findings involving the osseous pelvis. Electronically signed by: Maxx Ojeda MD 09/07/25 23:37 PM Code Status & VTE Plan VTE Prophylaxis Plan VTE Prophylaxis will be ordered: Yes
[2025-09-08] MEDS ORDERED: CYCLOBENZAPRINE HCL 10 MG TAB PO PRN (06:32)
[2025-09-08] MEDS ORDERED: chlordiazePOXIDE ALCOHOL WITHDRAWL 50MG PO STA (06:32)
[2025-09-08] MEDS ORDERED: ALBUTEROL HFA 8 GM INHALER INH PRN (06:32)
[2025-09-08] MEDS ORDERED: ERGOCALCIFEROL 1250 MCG (50,000 UNITS) CAP PO SCH (06:32)
[2025-09-08] MEDS ORDERED: NITROGLYCERIN SL 0.4 MG/TAB TAB SL PRN (06:32)
[2025-09-08] MEDS ORDERED: LORazepam Inj 3 MG in SYRINGE 1.5 ML IV PRN (06:32)
[2025-09-08] MEDS: SODIUM CHLORIDE 0.9% 1,000 ML IV SCH (07:24)
[2025-09-08 07:36] LABS: Hematocrit (blood only) 36.0 % (42.0-52.0); Hemoglobin 13.1 g/dl (14.0-18.0); Immature Granulocytes # (auto) 0.08 K/uL (0.01-0.20); Immature Granulocytes % (auto) 0.7 %; Mean Corpuscular Hemoglobin 35.0 pg (25.0-34.0); Mean Corpuscular Volume 96.3 fL (80.0-100.0); Platelet Count 198 K/uL (130-400); RDW Standard Deviation 50.0 fL (36.4-46.3); Red Blood Count 3.74 M/uL (4.70-6.10); White Blood Count 10.96 K/ul (4.8-10.8)
[2025-09-08 07:57] LABS: Alanine Aminotransferase 103.0 U/L (7-52); Albumin Globulin Ratio 1.1 (0.9-2); Albumin Level 3.6 gm/dl (3.4-5.0); Alkaline Phosphatase 132.0 U/L (34-104); Anion Gap 11.0 (3-11); Bilirubin,Total 0.9 mg/dl (0.2-1.0); Blood Urea Nitrogen 12.0 mg/dl (6-23); Calcium 7.6 mg/dl (8.6-10.3); Carbon Dioxide 27.0 mmol/L (21-32); Chloride 99.0 mmol/L (98-107); Creatinine Clr Calc Pharmacy 164.5 ml/min; Globulin 3.3 gm/dl (2.5-4.0); Glucose 114.0 mg/dl (70-99(Fasting)); Magnesium 1.9 mg/dl (1.7-2.4); Potassium 3.7 mmol/L (3.5-5.1); Sodium 137.0 mmol/L (136-145); Total Protein 6.9 gm/dl (6.0-8.3)
[2025-09-08] MEDS: CALCIUM GLUCONATE 1,000 MG/60 ML BAG IV ONE (09:31)
[2025-09-08] MEDS: ATORVASTATIN 10 MG TAB PO SCH (09:32)
[2025-09-08] MEDS: ASPIRIN 81 MG ECTAB PO SCH (09:32)
[2025-09-08] MEDS: CALCIUM 600MG + VIT D 400 IU TAB PO SCH (09:32)
[2025-09-08] MEDS: VITAMIN B COMPLEX TAB PO SCH (09:34)
[2025-09-08] MEDS: CLOPIDOGREL BISULFATE 75 MG TAB PO SCH (09:34)
[2025-09-08] MEDS: UMECLIDINIUM BROMIDE 62.5MCG/BLISTER 7 PUFFS/INHALER INH SCH (09:34)
[2025-09-08] MEDS: THIAMINE HCL 100 MG in SYRINGE 9 ML IV SCH (09:35)
[2025-09-08] MEDS: SERTRALINE HCL 100 MG TABLET PO SCH (09:35)
[2025-09-08] MEDS: MAGNESIUM OXIDE 400 MG TAB PO SCH (09:36)
[2025-09-08] MEDS: MULTIVITAMIN TAB PO SCH (09:36)
[2025-09-08] MEDS: FOLIC ACID 1 MG in SYRINGE 9.8 ML IV SCH (09:37)
[2025-09-08] MEDS: LOSARTAN POTASSIUM 50 MG TAB PO SCH (09:37)
[2025-09-08] MEDS: HYDROXYCHLOROQUINE SULFATE 200 MG TAB PO SCH (09:37)
[2025-09-08] MEDS: CYANOCOBALAMIN (B-12) 500 MCG TABLET PO SCH (09:38)
[2025-09-08] MEDS: ENOXAPARIN INJ 40 MG/0.4 ML SYR SQ SCH (09:38)
[2025-09-08] MEDS: FAMOTIDINE 20MG IV PUSH 20 MG/5 ML SYR IV SCH (09:41)
[2025-09-08] MEDS: PANTOprazole 40 MG/10 ML SYR IV SCH (09:42)
[2025-09-08] MEDS: LORazepam Inj 2 MG in SYRINGE 1 ML IV PRN (11:34)
--- NOTE | 2025-09-09 06:23 | Electrocardiogram Report ---
Test Reason : Blood Pressure : */* mmHG Vent. Rate : 72 BPM Atrial Rate : 72 BPM P-R Int : 170 ms QRS Dur : 90 ms QT Int : 428 ms P-R-T Axes : 66 53 54 degrees QTcB Int : 468 ms Normal sinus rhythm Septal infarct , age undetermined Abnormal ECG No previous ECGs available Confirmed by Garrison Prescott ([id number]) on 09/09/2025 6:22:54 AM Referred By: REFERRED SELF Confirmed By: Garrison Prescott
--- NOTE | 2025-09-09 06:43 | Hospitalist Progress Note ---
Date of Service September 09, 2025 Assessment & Plan (1) Alcoholic intoxication: Plan: 54-year-old male with past medical history significant for hypertension, hyperlipidemia, peripheral vascular disease, GERD, COPD, rheumatoid arthritis, depression and anxiety and ongoing alcoholism and tobacco abuse presents with alcohol intoxication. Patient went to [facility] rehabilitation facility today and found to be intoxicated with alcohol and sent here. Patient states he was in alcohol rehab last year. And states he started drinking again 4 weeks ago when he had his tooth pulled out for pain control. Patient states last 4 days he did not eat anything and was just drinking. Since last 4 weeks states is drinking 3 pints of hard liquor daily. Denies any headache. Vision is okay. No sore throat. Has cough from his smoking. Afebrile. Denies any chest pain or shortness of breath. No nausea or abdominal pain. Normal bowel and bladder movements. States he is feeling dizzy when he stands up. Hemodynamics are okay. He states he had a severe alcohol withdrawal in the past.Patient is from [facility]. Alcohol intoxication Alcohol level 293 in ED Went to [facility] rehab but was sent here because of intoxication Patient has alcohol withdrawal in the past Placed on Librium protocol with Ativan as needed, on admission IV thiamine and folic acid and multivitamins will follow lfts Close monitor for withdrawal 09/09 Pt started to withdraw from etoh yesterday, he was able to answer appropriately but was having some shakes and feeling uncomfortable, required iv ativan in addition to scheduled lorazepam taper. History of rheumatoid arthritis On Plaquenil History of COPD Continue home inhalers History of peripheral vascular disease Status post stents to both legs as per patient On aspirin, Plavix and statin GERD On omeprazole changed to Protonix as patient on Plavix. Hyperlipidemia On statin Depression and anxiety Zoloft Hypertension On clonidine and losartan Will hold hydrochlorothiazide for electrolyte abnormalities Will monitor Hyponatremia Sodium 133 in ED, currently 140 received fluids Will follow repeat labs Hypomagnesia and hypokalemia Magnesium 1.2 and potassium 2.9 on admission Replace and monitor Hypocalcemia replace follow vit D levels - found to be hypovit. D and on supplement DVT prophylaxis - Lovenox Disposition - Telemetry Full code. Admission and Anticipated Discharge Date Admission Date: September 08, 2025 Subjective Pt seen in follow up Presented at [facility] intoxicated -> sent to ED after some falls Also found to have electrolyte abnormalities in ED Yesterday able to answer questions appropriately but started to withdraw, having shakes, uncomfortable, required iv ativan in addition to scheduled lorazepam taper Currently laying in bed fairly comfortable Discussed nicotine patch, pt in agreement to use Review of Systems Review of Systems: All systems reviewed & are unremarkable except as noted in Subjective Physical Exam Physical Exam: General- Not in distress Head- atraumatic Eyes- PERRL. Neck- supple Lungs- clear to auscultation no wheezing or crackles. Heart- regular rhythm; no murmur Abdomen- normal bowel sounds, soft, nontender, no distension Extremities- no pretibial edema, no erythema seen Neuro- alert, oriented PERRL, no facial palsy; no dysarthria; moves extremities Results & Data Results & Data Vital Signs (Past 12 Hours) Vital Signs Temp Pulse Pulse Pulse Resp BP BP 09/09/25 05:16 36.9 C 64 17 157/96 H 09/09/25 02:12 36.7 C 86 18 152/90 H 09/09/25 00:15 36.7 C 73 17 149/94 H 09/09/25 00:00 36.6 C 71 16 158/96 H 09/08/25 22:52 70 09/08/25 19:50 09/08/25 19:25 36.6 C 86 16 171/102 H 09/08/25 18:49 79 141/80 H Pulse Ox O2 Del Method 09/09/25 05:16 95 Room Air 09/09/25 02:12 96 Room Air 09/09/25 00:15 96 Room Air 09/09/25 00:00 96 Room Air 09/08/25 22:52 09/08/25 19:50 Room Air 09/08/25 19:25 97 Room Air 09/08/25 18:49 Laboratory Results 09/09/25 09/08/25 Range/Units 06:59 07:13 WBC 6.91 (4.8-10.8) K/ul RBC 3.48 L (4.70-6.10) M/uL Hgb 12.2 L (14.0-18.0) g/dl Hct 34.9 L (42.0-52.0) % MCV 100.3 H (80.0-100.0) fL MCH 35.1 H (25.0-34.0) pg MCHC 35.0 (32.0-36.0) g/dL RDW Std Deviation 53.5 H (36.4-46.3) fL RDW Coeff of Javi 14.5 (11.5-14.5) % Plt Count 161 (130-400) K/uL MPV 10.0 (9.4-12.4) fL Sodium 140 (136-145) mmol/L Potassium 3.5 (3.5-5.1) mmol/L Chloride 104 (98-107) mmol/L Carbon Dioxide 29 (21-32) mmol/L Anion Gap 7 (3-11) BUN 9 (6-23) mg/dl Creatinine 0.61 (0.6-1.4) mg/dl Est Cr Clr Drug Dosing 172.4 ml/min eGFR 114.14 BUN/Creatinine Ratio 14.8 (10-20) Glucose 118 H (70-99(Fasting)) mg/dl Calcium 7.9 L (8.6-10.3) mg/dl Phosphorus 2.3 L (2.5-4.9) mg/dl Magnesium 1.7 (1.7-2.4) mg/dl Total Bilirubin 1.4 H D (0.2-1.0) mg/dl AST 223 H (13-39) U/L ALT 104 H (7-52) U/L Alkaline Phosphatase 142 H (34-104) U/L Total Protein 6.5 (6.0-8.3) gm/dl Albumin 3.5 (3.4-5.0) gm/dl Globulin 3.0 (2.5-4.0) gm/dl Albumin/Globulin Ratio 1.2 (0.9-2) Vitamin B12 409 (180-914) pg/ml 25-OH Vitamin D Total 29.9 L (30-100) ng/ml Folate 2.95 L (>5.38) ng/ml Medications Administered Current Inpatient Medications Albuterol (Albuterol Hfa 8 Gm Inhaler) 2 puffs INH Q6H PRN PRN Reason: Shortness Of Breath Or Wheezin Stop: 10/08/25 06:31 Aspirin (Aspirin 81 Mg Ectab) 81 mg PO DAILY [facility] Stop: 10/08/25 08:59 Last Admin: 09/08/25 09:32 Dose: 81 mg Atorvastatin Calcium (Atorvastatin 10 Mg Tab) 10 mg PO DAILY [facility] Stop: 10/08/25 08:59 Last Admin: 09/08/25 09:32 Dose: 10 mg Calcium/Vitamin D (Calcium 600mg + Vit D 400 Iu Tab) 1 tab PO BID [facility] Stop: 10/08/25 08:59 Last Admin: 09/08/25 20:20 Dose: 1 tab Chlordiazepoxide HCl (Chlordiazepoxide Hcl 25 Mg Cap) 50 mg PO Q8H [facility]; Protocol Stop: 09/10/25 00:01 Chlordiazepoxide HCl (Chlordiazepoxide Hcl 25 Mg Cap) 25 mg PO Q8H [facility]; Protocol Stop: 09/11/25 00:01 Chlordiazepoxide HCl (Chlordiazepoxide Hcl 10 Mg Cap) 10 mg PO Q12H [facility]; Protocol Stop: 09/12/25 00:01 Clonidine HCl (Clonidine Hcl 0.1 Mg Tab) 0.1 mg PO TID [facility] Stop: 10/08/25 08:59 Last Admin: 09/08/25 20:20 Dose: 0.1 mg Clopidogrel Bisulfate (Clopidogrel Bisulfate 75 Mg Tab) 75 mg PO DAILY [facility] Stop: 10/08/25 08:59 Last Admin: 09/08/25 09:34 Dose: 75 mg Cyanocobalamin (Cyanocobalamin (B-12) 500 Mcg Tablet) 1,000 mcg PO DAILY [facility] Stop: 10/08/25 08:59 Last Admin: 09/08/25 09:38 Dose: 1,000 mcg Cyclobenzaprine HCl (Cyclobenzaprine Hcl 10 Mg Tab) 10 mg PO TID PRN PRN Reason: muscle spasms Stop: 10/08/25 06:31 Enoxaparin Sodium (Enoxaparin Inj 40 Mg/0.4 Ml Syr) 40 mg SQ Q24H [facility] Stop: 10/08/25 08:59 Last Admin: 09/08/25 09:38 Dose: 40 mg Gabapentin (Gabapentin 600 Mg Tab) 600 mg PO TID PRN PRN Reason: Pain Stop: 10/08/25 06:31 Hydroxychloroquine Sulfate (Hydroxychloroquine Sulfate 200 Mg Tab) 400 mg PO DAILY [facility] Stop: 10/08/25 08:59 Last Admin: 09/08/25 09:37 Dose: 400 mg Thiamine HCl 100 mg/ Syringe 10 mls @ 2 mls/min IV QAM [facility] Stop: 10/08/25 08:59 Last Admin: 09/08/25 09:35 Dose: 2 mls/min Folic Acid 1 mg/ Syringe 10 mls @ 5 mls/min IV QAM [facility] Stop: 10/08/25 08:59 Last Admin: 09/08/25 09:37 Dose: 5 mls/min Lorazepam 1 mg/ Syringe 1 mls @ 2 mls/min IV UD PRN; Protocol PRN Reason: EtOH Withdrawal AWSS Score 6,7 Stop: 10/08/25 06:31 Lorazepam 2 mg/ Syringe 2 mls @ 2 mls/min IV UD PRN; Protocol PRN Reason: EtOH Withdrawal AWSS Score 8,9 Stop: 10/08/25 06:31 Last Admin: 09/08/25 20:18 Dose: 2 mls/min Lorazepam 3 mg/ Syringe 3 mls @ 2 mls/min IV ONCE PRN; Protocol PRN Reason: EtOH Withdrawal AWSS Score 10+ Famotidine (Pepcid 20mg Iv Push) 20 mg in 5 mls @ 2.5 mls/min IV Q12 [facility] Stop: 10/08/25 09:59 Last Admin: 09/08/25 21:20 Dose: 2.5 mls/min Pantoprazole Sodium (Protonix) 40 mg in 10 mls @ 5 mls/min IV BID [facility] Stop: 10/08/25 09:59 Last Admin: 09/08/25 20:19 Dose: 5 mls/min Losartan Potassium (Losartan Potassium 50 Mg Tab) 50 mg PO DAILY [facility] Stop: 10/08/25 08:59 Last Admin: 09/08/25 09:37 Dose: 50 mg Magnesium Oxide (Magnesium Oxide 400 Mg Tab) 400 mg PO DAILY [facility] Stop: 10/08/25 08:59 Last Admin: 09/08/25 09:36 Dose: 400 mg Multivitamins (Multivitamin Tab) 1 tab PO QAM [facility] Stop: 10/08/25 08:59 Last Admin: 09/08/25 09:36 Dose: 1 tab Nitroglycerin (Nitroglycerin Sl 0.4 Mg/Tab Tab) 0.4 mg SL Q5M PRN PRN Reason: Chest Pain Stop: 10/08/25 06:31 Ondansetron HCl (Ondansetron 2 Mg Od Tab) 2 mg PO Q4H PRN PRN Reason: Nausea And Vomiting Stop: 10/08/25 13:42 Pantoprazole Sodium (Pantoprazole 40 Mg Tab) 40 mg PO QAM [facility] Stop: 10/08/25 08:59 Last Admin: 09/08/25 09:36 Dose: Not Given Sertraline HCl (Sertraline Hcl 100 Mg Tablet) 200 mg PO DAILY [facility] Stop: 10/08/25 08:59 Last Admin: 09/08/25 09:35 Dose: 200 mg Umeclidinium [place] (Umeclidinium [place] 62.5mcg/Blister 7 Puffs/Inhaler) 1 puffs INH DAILY [facility] Stop: 10/08/25 08:59 Last Admin: 09/08/25 09:34 Dose: 1 puffs Vitamin B Complex (Vitamin B Complex Tab) 1 tab PO DAILY [facility] Stop: 10/08/25 08:59 Last Admin: 09/08/25 09:34 Dose: 1 tab
[2025-09-09 07:32] LABS: Hematocrit (blood only) 34.9 % (42.0-52.0); Hemoglobin 12.2 g/dl (14.0-18.0); Mean Corpuscular Hemoglobin 35.1 pg (25.0-34.0); Mean Corpuscular Volume 100.3 fL (80.0-100.0); Platelet Count 161 K/uL (130-400); RDW Standard Deviation 53.5 fL (36.4-46.3); Red Blood Count 3.48 M/uL (4.70-6.10); White Blood Count 6.91 K/ul (4.8-10.8)
[2025-09-09 07:54] LABS: Alanine Aminotransferase 104.0 U/L (7-52); Albumin Globulin Ratio 1.2 (0.9-2); Albumin Level 3.5 gm/dl (3.4-5.0); Alkaline Phosphatase 142.0 U/L (34-104); Anion Gap 7.0 (3-11); Bilirubin,Total 1.4 mg/dl (0.2-1.0); Blood Urea Nitrogen 9.0 mg/dl (6-23); Calcium 7.9 mg/dl (8.6-10.3); Carbon Dioxide 29.0 mmol/L (21-32); Chloride 104.0 mmol/L (98-107); Creatinine Clr Calc Pharmacy 172.4 ml/min; Globulin 3.0 gm/dl (2.5-4.0); Glucose 118.0 mg/dl (70-99(Fasting)); Magnesium 1.7 mg/dl (1.7-2.4); Potassium 3.5 mmol/L (3.5-5.1); Sodium 140.0 mmol/L (136-145); Total Protein 6.5 gm/dl (6.0-8.3)
[2025-09-09] MEDS: ONDANSETRON 2 MG OD TAB PO PRN (08:06)
[2025-09-09] MEDS: LORazepam Inj 1 MG in SYRINGE 0.5 ML IV PRN (08:17)
[2025-09-09] MEDS: POTASSIUM CHLORIDE CRTAB 20 MEQ TABCR PO STA (08:32)
[2025-09-09] MEDS: MAGNESIUM SULFATE / D5W 1 GM/100 ML BAG IV ONE (08:32)
[2025-09-09] MEDS: NICOTINE 14 MG/24 HR PATCH TD SCH (18:23)
[2025-09-09] MEDS: GABAPENTIN 600 MG TAB PO PRN (20:49)
[2025-09-10 06:27] LABS: Hematocrit (blood only) 37.4 % (42.0-52.0); Hemoglobin 13.0 g/dl (14.0-18.0); Mean Corpuscular Hemoglobin 35.2 pg (25.0-34.0); Mean Corpuscular Volume 101.4 fL (80.0-100.0); Platelet Count 167 K/uL (130-400); RDW Standard Deviation 52.5 fL (36.4-46.3); Red Blood Count 3.69 M/uL (4.70-6.10); White Blood Count 9.29 K/ul (4.8-10.8)
[2025-09-10 06:48] LABS: Alanine Aminotransferase 89.0 U/L (7-52); Albumin Globulin Ratio 1.1 (0.9-2); Albumin Level 3.8 gm/dl (3.4-5.0); Alkaline Phosphatase 156.0 U/L (34-104); Anion Gap 9.0 (3-11); Bilirubin,Total 1.4 mg/dl (0.2-1.0); Blood Urea Nitrogen 9.0 mg/dl (6-23); Calcium 8.3 mg/dl (8.6-10.3); Carbon Dioxide 26.0 mmol/L (21-32); Chloride 104.0 mmol/L (98-107); Creatinine Clr Calc Pharmacy 178.2 ml/min; Globulin 3.4 gm/dl (2.5-4.0); Glucose 117.0 mg/dl (70-99(Fasting)); Magnesium 1.5 mg/dl (1.7-2.4); Potassium 3.5 mmol/L (3.5-5.1); Sodium 139.0 mmol/L (136-145); Total Protein 7.2 gm/dl (6.0-8.3)
[2025-09-10] MEDS: REMOVE NICODERM PATCH SCH (07:37)
[2025-09-10] MEDS: MAGNESIUM SULFATE / D5W 1 GM/100 ML BAG IV ONE (12:40)
[2025-09-10] MEDS: POTASSIUM CHLORIDE CRTAB 20 MEQ TABCR PO STA (12:40)
--- NOTE | 2025-09-10 17:11 | Hospitalist Progress Note ---
Date of Service September 10, 2025 Assessment & Plan (1) Alcoholic intoxication: Plan: 54-year-old male with past medical history significant for hypertension, hyperlipidemia, peripheral vascular disease, GERD, COPD, rheumatoid arthritis, depression and anxiety and ongoing alcoholism and tobacco abuse presents with alcohol intoxication. Patient went to [facility] rehabilitation facility today and found to be intoxicated with alcohol and sent here. Patient states he was in alcohol rehab last year. And states he started drinking again 4 weeks ago when he had his tooth pulled out for pain control. Patient states last 4 days he did not eat anything and was just drinking. Since last 4 weeks states is drinking 3 pints of hard liquor daily. Denies any headache. Vision is okay. No sore throat. Has cough from his smoking. Afebrile. Denies any chest pain or shortness of breath. No nausea or abdominal pain. Normal bowel and bladder movements. States he is feeling dizzy when he stands up. Hemodynamics are okay. He states he had a severe alcohol withdrawal in the past.Patient is from [facility]. Alcohol intoxication Alcohol level 293 in ED Went to [facility] rehab but was sent here because of intoxication Patient has alcohol withdrawal in the past Placed on Librium protocol with Ativan as needed, on admission IV thiamine and folic acid and multivitamins will follow lfts Close monitor for withdrawal 09/09 Pt started to withdraw from etoh yesterday, he was able to answer appropriately but was having some shakes and feeling uncomfortable, required iv ativan in addition to scheduled lorazepam taper. 09/10 Feels improved today from yesterday History of rheumatoid arthritis On Plaquenil History of COPD Continue home inhalers History of peripheral vascular disease Status post stents to both legs as per patient On aspirin, Plavix and statin GERD On omeprazole changed to Protonix as patient on Plavix. Hyperlipidemia On statin Depression and anxiety Zoloft Hypertension On clonidine and losartan Will hold hydrochlorothiazide for electrolyte abnormalities Will monitor Hyponatremia Sodium 133 in ED, currently 140 received fluids Will follow repeat labs Hypomagnesia and hypokalemia Magnesium 1.2 and potassium 2.9 on admission Replace and monitor Hypocalcemia replace follow vit D levels - found to be hypovit. D and on supplement DVT prophylaxis - Lovenox Disposition - Telemetry Full code. Admission and Anticipated Discharge Date Admission Date: September 08, 2025 Subjective Pt seen in follow up Presented at [facility] alcohol rehab intoxicated -> sent to ED after some falls Also found to have electrolyte abnormalities in ED Currently laying in bed fairly comfortable, feels improved from yesterday Review of Systems Review of Systems: All systems reviewed & are unremarkable except as noted in Subjective Physical Exam Physical Exam: General- Not in distress Head- atraumatic Eyes- PERRL. Neck- supple Lungs- clear to auscultation no wheezing or crackles. Heart- regular rhythm; no murmur Abdomen- normal bowel sounds, soft, nontender, no distension Extremities- no pretibial edema, no erythema seen Neuro- alert, oriented PERRL, no facial palsy; no dysarthria; moves extremities Results & Data Results & Data Vital Signs (Past 12 Hours) Vital Signs Temp Pulse Pulse Resp BP Pulse Ox O2 Del Method 09/10/25 15:10 36.7 C 70 18 126/86 96 Room Air 09/10/25 11:34 36.8 C 63 20 162/94 H 97 Room Air 09/10/25 09:03 74 09/10/25 09:03 Room Air 09/10/25 07:47 37.0 C 68 20 152/89 H 98 Room Air Laboratory Results 09/10/25 Range/Units 05:59 WBC 9.29 (4.8-10.8) K/ul RBC 3.69 L (4.70-6.10) M/uL Hgb 13.0 L (14.0-18.0) g/dl Hct 37.4 L (42.0-52.0) % MCV 101.4 H (80.0-100.0) fL MCH 35.2 H (25.0-34.0) pg MCHC 34.8 (32.0-36.0) g/dL RDW Std Deviation 52.5 H (36.4-46.3) fL RDW Coeff of Javi 14.2 (11.5-14.5) % Plt Count 167 (130-400) K/uL MPV 10.1 (9.4-12.4) fL Absolute Nucleated RBC 0.02 (0.00-0.12) K/uL Nucleated RBC % (auto) 0.2 % Sodium 139 (136-145) mmol/L Potassium 3.5 (3.5-5.1) mmol/L Chloride 104 (98-107) mmol/L Carbon Dioxide 26 (21-32) mmol/L Anion Gap 9 (3-11) BUN 9 (6-23) mg/dl Creatinine 0.59 L (0.6-1.4) mg/dl Est Cr Clr Drug Dosing 178.2 ml/min eGFR 115.30 BUN/Creatinine Ratio 15.3 (10-20) Glucose 117 H (70-99(Fasting)) mg/dl Calcium 8.3 L (8.6-10.3) mg/dl Phosphorus 3.0 (2.5-4.9) mg/dl Magnesium 1.5 L (1.7-2.4) mg/dl Total Bilirubin 1.4 H (0.2-1.0) mg/dl AST 149 H (13-39) U/L ALT 89 H (7-52) U/L Alkaline Phosphatase 156 H (34-104) U/L Total Protein 7.2 (6.0-8.3) gm/dl Albumin 3.8 (3.4-5.0) gm/dl Globulin 3.4 (2.5-4.0) gm/dl Albumin/Globulin Ratio 1.1 (0.9-2) Medications Administered Current Inpatient Medications Albuterol (Albuterol Hfa 8 Gm Inhaler) 2 puffs INH Q6H PRN PRN Reason: Shortness Of Breath Or Wheezin Stop: 10/08/25 06:31 Aspirin (Aspirin 81 Mg Ectab) 81 mg PO DAILY [facility] Stop: 10/08/25 08:59 Last Admin: 09/10/25 07:35 Dose: 81 mg Atorvastatin Calcium (Atorvastatin 10 Mg Tab) 10 mg PO DAILY [facility] Stop: 10/08/25 08:59 Last Admin: 09/10/25 07:37 Dose: 10 mg Calcium/Vitamin D (Calcium 600mg + Vit D 400 Iu Tab) 1 tab PO BID [facility] Stop: 10/08/25 08:59 Last Admin: 09/10/25 07:36 Dose: 1 tab Chlordiazepoxide HCl (Chlordiazepoxide Hcl 25 Mg Cap) 25 mg PO Q8H [facility]; Protocol Stop: 09/11/25 00:01 Last Admin: 09/10/25 15:36 Dose: 25 mg Chlordiazepoxide HCl (Chlordiazepoxide Hcl 10 Mg Cap) 10 mg PO Q12H [facility]; Protocol Stop: 09/12/25 00:01 Clonidine HCl (Clonidine Hcl 0.1 Mg Tab) 0.1 mg PO TID [facility] Stop: 10/08/25 08:59 Last Admin: 09/10/25 14:04 Dose: 0.1 mg Clopidogrel Bisulfate (Clopidogrel Bisulfate 75 Mg Tab) 75 mg PO DAILY [facility] Stop: 10/08/25 08:59 Last Admin: 09/10/25 07:36 Dose: 75 mg Cyanocobalamin (Cyanocobalamin (B-12) 500 Mcg Tablet) 1,000 mcg PO DAILY [facility] Stop: 10/08/25 08:59 Last Admin: 09/10/25 07:35 Dose: 1,000 mcg Cyclobenzaprine HCl (Cyclobenzaprine Hcl 10 Mg Tab) 10 mg PO TID PRN PRN Reason: muscle spasms Stop: 10/08/25 06:31 Enoxaparin Sodium (Enoxaparin Inj 40 Mg/0.4 Ml Syr) 40 mg SQ Q24H [facility] Stop: 10/08/25 08:59 Last Admin: 09/10/25 07:33 Dose: 40 mg Gabapentin (Gabapentin 600 Mg Tab) 600 mg PO TID PRN PRN Reason: Pain Stop: 10/08/25 06:31 Last Admin: 09/10/25 07:34 Dose: 600 mg Hydroxychloroquine Sulfate (Hydroxychloroquine Sulfate 200 Mg Tab) 400 mg PO DAILY [facility] Stop: 10/08/25 08:59 Last Admin: 09/10/25 07:35 Dose: 400 mg Thiamine HCl 100 mg/ Syringe 10 mls @ 2 mls/min IV QAM [facility] Stop: 10/08/25 08:59 Last Admin: 09/10/25 07:32 Dose: 2 mls/min Folic Acid 1 mg/ Syringe 10 mls @ 5 mls/min IV QAM [facility] Stop: 10/08/25 08:59 Last Admin: 09/10/25 07:32 Dose: 5 mls/min Lorazepam 1 mg/ Syringe 1 mls @ 2 mls/min IV UD PRN; Protocol PRN Reason: EtOH Withdrawal AWSS Score 6,7 Stop: 10/08/25 06:31 Last Admin: 09/09/25 08:17 Dose: 2 mls/min Lorazepam 2 mg/ Syringe 2 mls @ 2 mls/min IV UD PRN; Protocol PRN Reason: EtOH Withdrawal AWSS Score 8,9 Stop: 10/08/25 06:31 Last Admin: 09/08/25 20:18 Dose: 2 mls/min Lorazepam 3 mg/ Syringe 3 mls @ 2 mls/min IV ONCE PRN; Protocol PRN Reason: EtOH Withdrawal AWSS Score 10+ Famotidine (Pepcid 20mg Iv Push) 20 mg in 5 mls @ 2.5 mls/min IV Q12 [facility] Stop: 10/08/25 09:59 Last Admin: 09/10/25 07:33 Dose: 2.5 mls/min Pantoprazole Sodium (Protonix) 40 mg in 10 mls @ 5 mls/min IV BID [facility] Stop: 10/08/25 09:59 Last Admin: 09/10/25 07:33 Dose: 5 mls/min Losartan Potassium (Losartan Potassium 50 Mg Tab) 50 mg PO DAILY [facility] Stop: 10/08/25 08:59 Last Admin: 09/10/25 07:35 Dose: 50 mg Magnesium Oxide (Magnesium Oxide 400 Mg Tab) 400 mg PO DAILY [facility] Stop: 10/08/25 08:59 Last Admin: 09/10/25 07:37 Dose: 400 mg Miscellaneous (Remove Nicoderm Patch) 1 each N/A DAILY@0859 [facility] Stop: 10/10/25 08:58 Last Admin: 09/10/25 07:37 Dose: 1 each Multivitamins (Multivitamin Tab) 1 tab PO QAM [facility] Stop: 10/08/25 08:59 Last Admin: 09/10/25 07:36 Dose: 1 tab Nicotine (Nicotine 14 Mg/24 Hr Patch) 1 patch TD QAM [facility] Stop: 10/09/25 18:14 Last Admin: 09/10/25 07:34 Dose: 1 patch Nitroglycerin (Nitroglycerin Sl 0.4 Mg/Tab Tab) 0.4 mg SL Q5M PRN PRN Reason: Chest Pain Stop: 10/08/25 06:31 Ondansetron HCl (Ondansetron 2 Mg Od Tab) 2 mg PO Q4H PRN PRN Reason: Nausea And Vomiting Stop: 10/08/25 13:42 Last Admin: 09/09/25 08:06 Dose: 2 mg Oxycodone HCl (Oxycodone Hcl Ir 5 Mg Tab (Immediate Release)) 5 mg PO Q6H PRN PRN Reason: Mod-Sev Pain (Scale 4-10) Stop: 09/23/25 21:13 Last Admin: 09/09/25 21:43 Dose: 5 mg Pantoprazole Sodium (Pantoprazole 40 Mg Tab) 40 mg PO QAM [facility] Stop: 10/08/25 08:59 Last Admin: 09/08/25 09:36 Dose: Not Given Sertraline HCl (Sertraline Hcl 100 Mg Tablet) 200 mg PO DAILY [facility] Stop: 10/08/25 08:59 Last Admin: 09/10/25 07:35 Dose: 200 mg Umeclidinium [place] (Umeclidinium [place] 62.5mcg/Blister 7 Puffs/Inhaler) 1 puffs INH DAILY [facility] Stop: 10/08/25 08:59 Last Admin: 09/10/25 07:33 Dose: 1 puffs Vitamin B Complex (Vitamin B Complex Tab) 1 tab PO DAILY [facility] Stop: 10/08/25 08:59 Last Admin: 09/10/25 07:38 Dose: 1 tab
[2025-09-10] MEDS: ACETAMINOPHEN 325 MG TAB PO STA (20:37)
[2025-09-11 08:19] LABS: Hematocrit (blood only) 35.5 % (42.0-52.0); Hemoglobin 12.7 g/dl (14.0-18.0); Mean Corpuscular Hemoglobin 36.2 pg (25.0-34.0); Mean Corpuscular Volume 101.1 fL (80.0-100.0); Platelet Count 180 K/uL (130-400); RDW Standard Deviation 51.6 fL (36.4-46.3); Red Blood Count 3.51 M/uL (4.70-6.10); White Blood Count 9.16 K/ul (4.8-10.8)
[2025-09-11 08:56] LABS: Alanine Aminotransferase 68.0 U/L (7-52); Albumin Globulin Ratio 1.1 (0.9-2); Albumin Level 3.7 gm/dl (3.4-5.0); Alkaline Phosphatase 139.0 U/L (34-104); Anion Gap 8.0 (3-11); Bilirubin,Total 0.9 mg/dl (0.2-1.0); Blood Urea Nitrogen 8.0 mg/dl (6-23); Calcium 8.5 mg/dl (8.6-10.3); Carbon Dioxide 26.0 mmol/L (21-32); Chloride 104.0 mmol/L (98-107); Creatinine Clr Calc Pharmacy 197.7 ml/min; Globulin 3.4 gm/dl (2.5-4.0); Glucose 116.0 mg/dl (70-99(Fasting)); Magnesium 1.4 mg/dl (1.7-2.4); Potassium 3.7 mmol/L (3.5-5.1); Sodium 138.0 mmol/L (136-145); Total Protein 7.1 gm/dl (6.0-8.3)
[2025-09-11] MEDS: ACETAMINOPHEN 325 MG TAB PO STA (09:43)
[2025-09-11] MEDS: MAGNESIUM SULFATE / D5W 1 GM/100 ML BAG IV SCH (09:43)
--- NOTE | 2025-09-11 10:47 | Discharge Summary ---
Date of Service September 11, 2025 Admission HPI Per Admitting Provider 54-year-old male with past medical history significant for hypertension, hyperlipidemia, peripheral vascular disease, GERD, COPD, rheumatoid arthritis, depression and anxiety and ongoing alcoholism and tobacco abuse presents with alcohol intoxication. Patient went to [facility] today and found to be intoxicated with alcohol and sent here. Patient states he was in alcohol rehab last year. And states he started drinking again 4 weeks ago when he had his tooth pulled out for pain control. Patient states last 4 days he did not eat anything and was just drinking. Since last 4 weeks states is drinking 3 pints of hard liquor daily. Denies any headache. Vision is okay. No sore throat. Has cough from his smoking. Afebrile. Denies any chest pain or shortness of breath. No nausea or abdominal pain. Normal bowel and bladder movements. States he is feeling dizzy when he stands up. Hemodynamics are okay. He states he had a severe alcohol withdrawal in the past.Patient is from [facility]. Past medical history. As mentioned above. Past surgical history. Tooth extraction. Stents in both legs as per patient. Social history. Smoking half pack daily. Taking 3 pints of liquor daily. Smokes marijuana once in a while Family history. Denies any significant family history. Admission Exam Per Admitting Provider General- Not in distress Head- atraumatic Eyes- PERRL. ENT- oropharynx clear Neck- supple, no JVD. Lungs- clear to auscultation no wheezing or crackles. Heart- regular rhythm; no murmur, no gallop. Abdomen- normal bowel sounds, soft, nontender, no distension Extremities- no pretibial edema, no erythema seen Neuro- alert, oriented PERRL, no facial palsy; no dysarthria; moves extremities Principal Diagnosis Alcohol abuse, alcohol intoxication Discharge Exam General- WD/WN M in NAD Head- atraumatic Eyes- PERRL. Neck- supple Lungs- clear to auscultation no wheezing or crackles. Heart- regular rhythm; no murmur Abdomen- normal bowel sounds, soft, nontender, no distension Extremities- no pretibial edema, no erythema seen Neuro- alert, oriented PERRL, no facial palsy; no dysarthria; moves extremities Discharge Data Allergies Allergy/AdvReac Type Severity Reaction Status Date / Time No Known Allergies Allergy Verified 09/08/25 07:36 Consultations 09/07/25 23:49 ED Decision to Admit Stat Ordered Studies 09/07/25 21:21 CT cervical spine wo con Stat FINDINGS: Vertebrae: The vertebral bodies are intact without acute osseous traumatic injury. No anterolisthesis or retrolisthesis is identified. The facet joints are well aligned without subluxation or dislocation. The pedicles, transverse processes and spinous processes are intact. Bilateral chronic facet hypertrophic arthropathy incidentally noted. Discs/spinal canal/neural foramina: Incidental chronic appearing multilevel disc spondylosis noted with narrowing and marginal hypertrophic changes. No significant acute central canal stenosis identified. Soft tissues: Unremarkable. IMPRESSION: No acute osseous traumatic injury or significant abnormal alignment involving the cervical spine. Incidental chronic multilevel degenerative changes noted. CT head/brain wo con Stat FINDINGS: Limitations: There is motion artifact, which degrades image quality on multiple image slices. Brain: Unremarkable. No hemorrhage. No significant white matter disease. No edema. Ventricles: Unremarkable. No ventriculomegaly. Bones/joints: Unremarkable. No acute fracture. Soft tissues: No significant overlying soft tissue traumatic injury identified. No radiopaque foreign body or subcutaneous emphysema. Sinuses: Mucosal thickening involving several ethmoid air cells. The left maxillary sinus demonstrates mucosal thickening with mucoperiosteal sclerosis. No air-fluid levels. Mastoid air cells: Unremarkable as visualized. No mastoid effusion. IMPRESSION: Accounting for mild motion artifact, no acute intracranial process identified. Hospital Course (1) Alcoholic intoxication: 54-year-old male with past medical history significant for hypertension, hyperlipidemia, peripheral vascular disease, GERD, COPD, rheumatoid arthritis, depression and anxiety and ongoing alcoholism and tobacco abuse presents with alcohol intoxication. Patient went to [facility] rehabilitation facility today and found to be intoxicated with alcohol and sent here. Patient states he was in alcohol rehab last year. And states he started drinking again 4 weeks ago when he had his tooth pulled out for pain control. Patient states last 4 days he did not eat anything and was just drinking. Since last 4 weeks states is drinking 3 pints of hard liquor daily. Denies any headache. Vision is okay. No sore throat. Has cough from his smoking. Afebrile. Denies any chest pain or shortness of breath. No nausea or abdominal pain. Normal bowel and bladder movements. States he is feeling dizzy when he stands up. Hemodynamics are okay. He states he had a severe alcohol withdrawal in the past.Patient is from [facility]. Alcohol intoxication Alcohol level 293 in ED [facility] was [facility] here because of intoxication Patient has alcohol withdrawal in the past Placed on Librium protocol with Ativan as needed, on admission IV thiamine and folic acid and multivitamins will follow lfts Close monitor for withdrawal 09/09 Pt started to withdraw from etoh yesterday, he was able to answer appropriately but was having some shakes and feeling uncomfortable, required iv ativan in addition to scheduled lorazepam taper. 09/10 Feels improved today from yesterday 09/11 Continues to feel well, wants to be discharged History of rheumatoid arthritis On Plaquenil History of COPD Continue home inhalers History of peripheral vascular disease Status post stents to both legs as per patient On aspirin, Plavix and statin GERD On omeprazole changed to Protonix as patient on Plavix. Hyperlipidemia On statin Depression and anxiety Zoloft Hypertension On clonidine and losartan Held hydrochlorothiazide for electrolyte abnormalities, can resume on DC Will monitor Hyponatremia Sodium 133 in ED, currently 140 received fluids Will follow repeat labs Hypomagnesia and hypokalemia Magnesium 1.2 and potassium 2.9 on admission Replace and monitor Hypocalcemia replace follow vit D levels - found to be hypovit. D and on supplement Total Time Total Time Spent Total Time Spent (In Minutes): 40 Discharge Plan Discharge Items Patient Disposition: Drug & Alcohol Rehab Reason For Visit: ALCOHOL INTOXICATION Discharge Diagnosis: Alcohol abuse, alcohol intoxication Condition on Discharge: Fair Activity: Per Instructions section Non-emergency contact: Primary Care Provider Call non-emergency contact if: you have any medication questions and your symptoms worsen Follow-up/Referrals: PCP,NO [Primary Care Provider] - Diet: Heart Healthy Addtl Attending Provider Instructions: [facility]. Plan to return to [facility] now. Pending Studies at Discharge: No Stand-Alone Forms: My [facility] Skilled Items Patient informed of condition?: Yes DNR: No Discharge Level of Care: Other Communicable Disease: No Discharge Prognosis: Stable Lines: None Urinary Catheter: No Medications and DC Order Prescriptions: New pantoprazole 40 mg Tablet,Delayed Release (Dr/Ec) 40 mg PO QAM Qty: 30 0RF Continued losartan 50 mg tablet 50 mg PO DAILY cyclobenzaprine 10 mg tablet 10 mg PO TID PRN (Reason: muscle spasms) clonidine HCl 0.1 mg tablet 0.1 mg PO TID gabapentin 600 mg tablet 600 mg PO TID PRN (Reason: Pain) atorvastatin 10 mg tablet 10 mg PO DAILY sertraline 100 mg tablet 200 mg PO DAILY cyanocobalamin (vitamin B-12) 1,000 mcg Tablet 1,000 mcg PO DAILY aspirin 81 mg Tablet,Delayed Release (Dr/Ec) 81 mg PO DAILY meloxicam 7.5 mg tablet 7.5 mg PO DAILY PRN (Reason: Pain, Moderate) magnesium oxide 400 mg (241.3 mg magnesium) tablet 400 mg PO DAILY hydroxyzine HCl 25 mg tablet 50 mg PO TID PRN (Reason: Anxiety) ergocalciferol (vitamin D2) 1,250 mcg (50,000 unit) capsule 1,250 mcg PO WK albuterol sulfate 90 mcg/actuation HFA aerosol inhaler 2 inh INHALATION Q6H PRN (Reason: Shortness Of Breath Or Wheezing) vitamin B complex Capsule 1 cap PO DAILY tiotropium bromide 18 mcg capsule, w/inhalation device 18 cap INHALATION DAILY hydrochlorothiazide 12.5 mg tablet 12.5 mg PO DAILY hydroxychloroquine 200 mg tablet 400 mg PO DAILY clopidogrel 75 mg tablet 75 mg PO DAILY Discontinued esomeprazole magnesium 20 mg capsule,delayed release(DR/EC) 20 mg PO DAILY Discharge Orders: Discharge Order (Routine); Ordered 09/11/25 Ordered By: Titi Elizabeth/Other Patient Handouts: ED Alcohol Withdrawal, ED Alcohol Intoxication Admission Data Admit Date/Time: 09/08/25 03:07 Attending Provider: Titi Barraza Admit Provider: Cristopher Mooney Primary Care Provider: PCP,NO Other Providers: Cristopher Mooney Other Interventions: Discharge Summary Assessment (RN) Last Done: 09/11/25 11:58
== END 2025-09-11 14:47 | disposition other institution (70) | DRG 897 ==
LOC: ED 21:14 → INTOOBSV 09-08 03:07 → 2S 09-08 03:07